=== PATIENT | male | born 1980 | race Caucasian/White ===

== ENCOUNTER 2025-04-17 18:20 | Emergency (ER) | payer OTHER ==
[~2025-04-17] VITALS: Ht 172.7 cm; Wt 72.6 kg
[2025-04-17 18:23] VITALS: BP 116/67
[2025-04-17 19:15] LABS: PLATELET COUNT (AUTO) 241 K/uL (152-348); RED BLOOD CELL COUNT(AUTO) 4.02 MIL/uL (4.06-5.63); RED CELL DISTRIBUTION WIDTH 14.7 % (12.1-16.2); WHITE BLOOD COUNT (AUTO) 6.9 K/uL (3.6-10.2)
[2025-04-17 19:21] LABS: CREATININE 0.8 mg/dL (0.6-1.3); SODIUM SERUM 140.0 mmol/L (136-145); UREA NITROGEN, BLOOD 17.0 mg/dL (7-18)
[2025-04-17] MEDS ORDERED: KETOROLAC TROMETHAMINE 15 MG INJ ONE (19:21)
[2025-04-17] MEDS ORDERED: FAMOTIDINE. 20 MG/2 ML VIAL IV ONE (19:21)
[2025-04-17] MEDS: IV NORMAL SALINE 500 ML BAG IV ONE (19:22)
[2025-04-17] MEDS: KETOROLAC TROMETHAMINE 15 MG INJ IVP ONE (19:22)
[2025-04-17] MEDS: FAMOTIDINE. 20 MG/2 ML VIAL IV ONE (19:22)
[2025-04-17 19:27] LABS: ASPARTATE AMINOTRANSFERASE 91.0 U/L (15-37); TOTAL PROTEIN, SERUM 7.5 g/dL (6.4-8.2)
[2025-04-17] MEDS ORDERED: FAMO-132 PO (20:51)
[2025-04-17 21:01] VITALS: BP 120/78; O2SAT 99
== END 2025-04-17 21:16 | disposition home or self-care (01) ==
LOC: ER 18:22
DX: R10.9 Unspecified abdominal pain (principal); R79.89 Other specified abnormal findings of blood chemistry; Z90.49 Acquired absence of other specified parts of digestive tract
CPT/HCPCS: 99285; 74176; 96374; 96375; 80076; 80048; 83690; 85025; 36415; J1885; J1308; J7040; A4606; A4663